=== PATIENT | female | born 1935 | race Hispanic/Latino ===

== ENCOUNTER 2017-08-22 08:21 | Inpatient (IN) | payer MEDICARE ==
--- NOTE | 2017-08-19 14:16 | Diagnostic Imaging Report ---
PROCEDURE: Frontal and lateral views of the chest. COMPARISON: None. INDICATIONS: PRE OPERATIVE CHEST X-RAY FOR KNEE SURGERY FINDINGS: Lines/tubes: None. Lungs: The lungs are well inflated and clear. There is no evidence of pneumonia or pulmonary edema. Pleura: There is no pleural effusion or pneumothorax. Eventration of the posterior hemidiaphragms. Heart and mediastinum: Mild enlargement of the cardiac silhouette. Pulmonary vasculature is normal. Atherosclerotic calcification of the abdominal aorta. Bones and soft tissues: No aggressive lytic lesion. Degenerative disc changes in the thoracic spine. IVC filter is noted in the abdomen on the lateral view. IMPRESSION: 1. mild enlargement of the cardiac silhouette, without acute cardiopulmonary disease. Smith Giraldo M.D. Dictated by: Smith Giraldo M.D. on 08/19/2017 at 14:17 Electronically approved by: Smith Giraldo M.D. on 08/19/2017 at 14:17
[2017-08-19 14:28] LABS: BASOPHILS # (AUTO) 0.1 (0.0-0.1); BASOPHILS % 1.1 % (0.0-1.0); EOSINOPHILS # (AUTO) 0.2 (0.0-0.4); EOSINOPHILS % 2.4 % (0.0-6.0); HEMATOCRIT 42.8 % (34.2-44.1); HEMOGLOBIN 14.1 g/dL (12.0-16.0); LYMPHOCYTES # (AUTO) 2.3 (1.0-3.2); LYMPHOCYTES % 25.8 % (18.0-39.1); MEAN CORPUSCULAR HEMOGLOBIN 31.5 pg (28-32); MEAN CORPUSCULAR HGB CONC 32.9 g/dL (31-35); MEAN CORPUSCULAR VOLUME 95.7 fL (81-99); MONOCYTES # (AUTO) 0.6 (0.2-0.8); MONOCYTES % 6.6 % (4.4-11.3); NEUTROPHILS # (AUTO) 5.8 (2.1-6.9); NEUTROPHILS % 63.9 % (38.7-80.0); PLATELET COUNT 344 x10e3/uL (140-360); RED BLOOD COUNT 4.47 x10e6/uL (3.6-5.1); RED CELL DISTRIBUTION WIDTH 12.5 % (11.7-14.4)
[~2017-08-22] VITALS: Ht 160 cm; Wt 72.6 kg
[~2017-08-22 08:21] MED LIST: ALPRAZOLAM1 MG PO; ASPIR 8181 MG PO; ATORVASTATIN CA10 MG PO; BACITRACIN 50,000 UNIT VIAL ONE; CEFAZOLIN SOD 2 GM/D5W 50ML 50 ML IV ONE; CELECOXIB 200 MG CAP ONE; DEXAMETHASONE SOD PHOS 10 MG/1 ML VIAL ONE; EXFORGE 10-3201 EACH PO; GABAPENTIN 300 MG CAP ONE; LEXAPRO10 MG PO; METOPROLOL TART25 MG PO; MUPIROCIN 2% OINT 22 GM TUBE ONE; PLAVIX75 MG PO; ROPIVACAINE 246.25 MG, EPINEPHRINE HCL 1:1000 0.5 MG, CLONIDINE HCL 0.08 MG, KETOROLAC ... INJ ONE; TRANEXAMIC ACID 1,000 MG/10 ML ML ONE; VIT D2 PO
--- OUTSIDE RECORDS SUMMARY | 2017-08-22 08:24 | XMS REPORT ---
Author Author [facility] Address Unknown Phone Unavailable Care Team Providers Care Adapted Physical Education Specialist Name Role Phone REBECA MARIE Unavailable Unavailable Problems This patient has no known problems. Allergies, Adverse Reactions, Alerts This patient has no known allergies or adverse reactions. Medications This patient has no known medications. Results Test Description Test Time Test Comments Text Results Atomic Results Result Comments CHEST 2 VIEWS [facility] [address] [address] Patient Name: JACQUE KESSLER MR #: [id number] : 1935 Age/Sex: 82/F Req # : [id number] Adm Physician: Ordered by: KATHY BALLESTEROS MD Report #: [id number] Location: OR Room/Bed: Procedure: [id number] DX/CHEST 2 VIEWS Exam Date: 08/19/17 Exam Time: 1330 REPORT STATUS: Signed PROCEDURE: Frontal and lateral views of the chest. COMPARISON: None. INDICATIONS: PRE OPERATIVE CHEST X- RAY FOR KNEE SURGERY FINDINGS: Lines/tubes: None. Lungs: The lungs are well inflated and clear. There is no evidence of pneumonia or pulmonary edema. Pleura: There is no pleural effusion or pneumothorax. Eventration of the posterior hemidiaphragms. Heart and mediastinum: Mild enlargement of the cardiac silhouette. Pulmonary vasculature is normal. Atherosclerotic calcification of the abdominal aorta. Bones and soft tissues: No aggressive lytic lesion. Degenerative disc changes in the thoracic spine. IVC filter is noted in the abdomen on the lateral view. IMPRESSION: 1. mild enlargement of the cardiac silhouette, without acute cardiopulmonary disease. Bridgette Giraldo M.D. Dictated by: Bridgette Giraldo M.D. on 08/19/2017 at 14:17 Electronically approved by: Bridgette Giraldo M.D. on 08/19/2017 at 14:17 Dictated By: BRIDGETTE GIRALDO MD [id number] Transcribed By: MALENA on 08/19/17 1417 COPY TO: KATHY BALLESTEROS III
[2017-08-22] MEDS ORDERED: DOCUSATE SODIUM 100 MG CAP PO PRN (10:15)
[2017-08-22] MEDS ORDERED: DIPHENHYDRAMINE HCL INJ 50 MG/ML VIAL IM/IV PRN (10:15)
[2017-08-22] MEDS ORDERED: ACETAMINOPHEN 650 MG SUPP PR PRN (10:15)
[2017-08-22] MEDS ORDERED: ONDANSETRON HCL INJ 2 MG/ML VIAL IV PRN (10:15)
[2017-08-22] MEDS ORDERED: PROMETHAZINE HCL (IM) 25 MG/ML VIAL IM PRN (10:15)
--- NOTE | 2017-08-22 11:00 | Diagnostic Imaging Report ---
PROCEDURE:X-RAY LEFT KNEE, ONE OR TWO VIEWS COMPARISON:None. INDICATIONS:POST OP KNEE FINDINGS:Status post total left knee arthroplasty with intact prosthesis in adequate anatomic alignment. There is post-operative suprapatellar effusion, soft tissue swelling and gas. Multiple surgical skin jenn. No acute fracture-dislocation. No definite intra-osseous lesion. CONCLUSION:Status post total left knee arthroplasty with intact prosthesis in adequate anatomic alignment. Dictated by: Christopher Dockery M.D. on 08/22/2017 at 11:01 Electronically approved by: Christopher Dockery M.D. on 08/22/2017 at 11:01
[2017-08-22] MEDS: SODIUM CHLORIDE 0.9% 1000ML 1,000 ML IV SCH ×2 (11:53→20:36)
[2017-08-22] MEDS: KETOROLAC TROMETHAMINE 30 MG/ML VIAL IV PRN (11:53)
[2017-08-22] MEDS: ACETAMINOPHEN 1000 MG/100 ML IV SCH ×2 (11:53→18:16)
[2017-08-22 12:00] VITALS: BP 134/62
[2017-08-22] MEDS ORDERED: CEFAZOLIN SOD 1 GM/NS 50ML 50 ML IV SCH (14:00)
[2017-08-22 14:01] VITALS: BP 136/62
[2017-08-22] MEDS: HYDROCODONE/APAP 7.5MG-325MG 1 EA TAB PO PRN (14:01)
--- NOTE | 2017-08-22 14:45 | Operative Report ---
DATE OF PROCEDURE: August 22, 2017 FISH DRIER: Suresh Arana PA-C The patient was brought to the operating room for induction of anesthesia. Throughout this case, my PA's assistance was necessary for retraction of soft tissue and positioning of the extremity. This allows for efficient and technically successful execution of the operation and is considered medically necessary. PREOPERATIVE DIAGNOSIS: Osteoarthritis, left knee. POSTOPERATIVE DIAGNOSIS: Osteoarthritis, left knee. PROCEDURE: Left total knee arthroplasty. INDICATIONS: The patient is an 82-year-old lady with end-stage arthritis of her left knee. She has failed extensive conservative management. She would like to proceed with a left total knee replacement. The risks and benefits and added challenges due to her age and physical conditioning have been explained. She states she understands and wishes to proceed. DESCRIPTION OF PROCEDURE: The patient was brought to the operating room and placed under general anesthetic. She received prophylactic antibiotics, tranexamic acid and a regional block in the holding area. Her left lower extremity was prepped and draped in a sterile manner. A preoperative time out was performed. The extremity was exsanguinated and a proximal tourniquet was inflated to 300 mmHg. A standard anterior approach with a medial parapatellar arthrotomy was performed. Clear synovial fluid was removed from the joint. Soft tissue releases were performed to bring the knee up into flexion with the patella everted. Meniscal remnants were excised. The cruciate ligaments were sacrificed. A Alex and Nephew Silvia II posterior stabilized knee system was used throughout the case. The proximal tibia was resected using an extramedullary cutting guide. The tibial baseplate was a size #4. The central fin punch was impacted and attention was directed towards the distal femur. An intramedullary cutting guide was used to resect the distal femur in 6 degrees of valgus and rotation referenced off of a combination of landmarks including [place]'s line, the epicondylar axis, and the posterior condyles. The femoral component was a size #5. The anterior and posterior cuts were made. Trial reductions were performed. A 9 mm ultra-congruent tibial insert provided optimal soft tissue balancing in flexion and extension. The patella was resurfaced with a 32 mm x 9 mm patellar button. The thickness was checked before and after resurfacing and was right around 23 mm. Patellar tracking was noted to be concentric. Trial implants were then removed. A 100 mL premixed pericapsular DARIA injection was placed into the soft tissue around the knee. The knee was thoroughly irrigated with a shower-tip pulsatile lavage. The components were cemented into place using a single mix of PALACOS cement preloaded with antibiotics. Bone quality was noted to be soft throughout the case. Care was taken not to impact the implants with any unusual force. The wound was further irrigated while the cement cured. The arthrotomy was then carefully closed with interrupted #1 Ethibond. The knee was put through flexion and extension to ensure a secure closure. The skin was closed with subcuticular Vicryl and jenn. A sterile bandage was applied. The patient was extubated and transported to the recovery room in stable condition. Blood loss was minimal and all needle and sponge counts were correct. Job#: [id number] DARRYL
[2017-08-22] MEDS: CELECOXIB 200 MG CAP PO SCH (16:26)
[2017-08-22] MEDS: ASPIRIN 325 MG TAB PO SCH (16:26)
[2017-08-22] MEDS: CEFAZOLIN SOD 1 GM VIAL IV SCH (16:26)
[2017-08-22] MEDS ORDERED: CELECOXIB 100 MG CAP PO SCH (17:00)
[2017-08-22] MEDS ORDERED: SEVOFLURANE INHAL SOLN 250 ML PEN BTL ONE (17:11)
[2017-08-22] MEDS ORDERED: LIDOCAINE HCL 2% LOCAL INJ 5 ML SDV VIAL INJ ONE (17:11)
[2017-08-22] MEDS ORDERED: PROPOFOL IV EMULSION 10 MG/ML 20 ML VIAL ONE (17:11)
[2017-08-22] MEDS ORDERED: ONDANSETRON HCL INJ 2 MG/ML VIAL ONE (17:11)
[2017-08-22] MEDS ORDERED: KETOROLAC TROMETHAMINE 30 MG/ML VIAL ONE (17:11)
[2017-08-22] MEDS ORDERED: DEXAMETHASONE SOD PHOS INJ 4 MG/ML VIAL ONE (17:11)
[2017-08-22] MEDS ORDERED: ROPIVACAINE 0.5% 5 MG/ML 30 ML SDV ONE (17:16)
[2017-08-22] MEDS ORDERED: LIDOCAINE 2%/ EPINEPHRINE 20ML MDV ONE (17:16)
[2017-08-22] MEDS ORDERED: MIDAZOLAM HCL 2 MG/2 ML VIAL ONE (17:23)
[2017-08-22] MEDS ORDERED: FENTANYL CITRATE/PF 100MCG/2 ML INJ ONE (17:23)
[2017-08-22 17:54] VITALS: BP 131/60
[2017-08-22 20:00] VITALS: BP 136/60
[2017-08-22] MEDS ORDERED: ZOLPIDEM TARTRATE 5 MG TAB PO PRN (21:00)
[2017-08-22] MEDS: HYDROCODONE/APAP 5MG-325MG TAB PO PRN (21:00)
[2017-08-23] VITALS: BP 142/64
[2017-08-23] MEDS: ACETAMINOPHEN 1000 MG/100 ML IV SCH ×2 (00:30→06:05)
[2017-08-23] MEDS: CEFAZOLIN SOD 1 GM VIAL IV SCH ×2 (00:30→08:30)
[2017-08-23 00:59] VITALS: BP 120/59
[2017-08-23] MEDS: HYDROCODONE/APAP 5MG-325MG TAB PO PRN (03:31)
[2017-08-23 04:00] VITALS: BP_SYST 120; BP_SYST 147; BP_DIAS 59; BP_DIAS 66
[2017-08-23] MEDS: KETOROLAC TROMETHAMINE 30 MG/ML VIAL IV PRN ×2 (05:29→11:30)
[2017-08-23] MEDS: SODIUM CHLORIDE 0.9% 1000ML 1,000 ML IV SCH (06:09)
[2017-08-23 07:03] LABS: HEMATOCRIT 39.3 % (34.2-44.1)
[2017-08-23 08:00] VITALS: BP 155/69
[2017-08-23 08:30] VITALS: BP 147/66
[2017-08-23] MEDS: HYDROCODONE/APAP 7.5MG-325MG 1 EA TAB PO PRN ×2 (08:30→14:00)
[2017-08-23] MEDS: CELECOXIB 200 MG CAP PO SCH (08:30)
[2017-08-23] MEDS: ASPIRIN 325 MG TAB PO SCH (08:30)
[2017-08-23] MEDS ORDERED: ACETAMINOPHEN 1000 MG/100 ML IV PRN (10:15)
[2017-08-23 13:57] VITALS: BP 155/70
[2017-08-23] MEDS ORDERED: NORCO 7.5-3251 EACH PO (14:42)
== END 2017-08-23 15:45 | disposition home health service (06) | DRG 470 ==
LOC: OR 08:21 → MED/SURG 11:08
PROVIDERS: ADMIT Specialist; ATTEND Specialist
PROC: 0SRD0J9 Replacement of Left Knee Joint with Synthetic Substitute, Cemented, Open Approach (ICD-10-PCS; principal; 2017-08-22 08:51)
DX: M17.12 Unilateral primary osteoarthritis, left knee (principal); K76.0 Fatty (change of) liver, not elsewhere classified; E11.9 Type 2 diabetes mellitus without complications; I10 Essential (primary) hypertension; E78.5 Hyperlipidemia, unspecified; D64.9 Anemia, unspecified; M71.22 Synovial cyst of popliteal space [Baker], left knee; I25.10 Atherosclerotic heart disease of native coronary artery without angina pectoris; F41.9 Anxiety disorder, unspecified
CPT/HCPCS: 36415; 71046; 85014; 85018; 85025; 86850; 86900; 86920; 93005; 97139; J0171; J0690; J1100; J1885; J2001; J2250; J2405; J2795; J7030

== ENCOUNTER → 2020-10-17 | Day surgery (SDC) | payer MEDICARE ==
[2020-10-15 15:39] LABS: BASOPHILS # (AUTO) 0.1 (0.0-0.1); BASOPHILS % 0.9 % (0.0-1.0); EOSINOPHILS # (AUTO) 0.3 (0.0-0.4); EOSINOPHILS % 2.2 % (0.0-6.0); HEMATOCRIT 41.8 % (34.2-44.1); HEMOGLOBIN 13.6 g/dL (12.0-16.0); LYMPHOCYTES # (AUTO) 2.4 (1.0-3.2); LYMPHOCYTES % 21.3 % (18.0-39.1); MEAN CORPUSCULAR HEMOGLOBIN 31.5 pg (28-32); MEAN CORPUSCULAR HGB CONC 32.5 g/dL (31-35); MEAN CORPUSCULAR VOLUME 96.8 fL (81-99); MONOCYTES # (AUTO) 0.8 (0.2-0.8); NEUTROPHILS # (AUTO) 7.8 (2.1-6.9); NEUTROPHILS % 68.2 % (38.7-80.0); PLATELET COUNT 334 x10e3/uL (140-360); RED BLOOD COUNT 4.32 x10e6/uL (3.6-5.1); RED CELL DISTRIBUTION WIDTH 13.4 % (11.7-14.4)
[2020-10-15 16:00] LABS: ANION GAP 11.8 mmol/L (8-16); BLOOD UREA NITROGEN 13 mg/dL (7-26); BUN/CREATININE RATIO 18 (6-25); CALCIUM 9.3 mg/dL (8.4-10.2); CARBON DIOXIDE 23 mmol/L (22-29); CHLORIDE 108 mmol/L (98-107); CREATININE, SERUM 0.73 mg/dL (0.57-1.11); EST GLOMERULAR FILTRATION RATE > 60 ML/MIN (60-); GLUCOSE 77 mg/dL (74-118); POTASSIUM 3.8 mmol/L (3.5-5.1); SODIUM 139 mmol/L (136-145)
[~2020-10-17] MED LIST changes: +AMLODIPINE BESY10 MG PO; +B&O 60MG R/S 60 MG SUPP PR ONE; -BACITRACIN 50,000 UNIT VIAL ONE; -CEFAZOLIN SOD 2 GM/D5W 50ML 50 ML IV ONE; +CEFTRIAXONE 1 GM VIAL ONE; -CELECOXIB 200 MG CAP ONE; -DEXAMETHASONE SOD PHOS 10 MG/1 ML VIAL ONE; +DEXAMETHASONE SOD PHOS INJ 4 MG/ML VIAL ONE; +EPHEDRINE SULFATE INJ 50 MG/ML VIAL ONE; -GABAPENTIN 300 MG CAP ONE; +GABAPENTIN100 MG PO; +GLYCOPYRROLATE INJ 0.2 MG/ML VIAL ONE; +IOPAMIDOL 300MG/ML 50ML INFUS..BTL IV ONE; +LIDOCAINE HCL 2% LOCAL INJ 5 ML SDV VIAL INJ ONE; +MECLIZINE HCL12.5 MG PO; -MUPIROCIN 2% OINT 22 GM TUBE ONE; +NORCO 7.5-3251 EACH PO; +OMEPRAZOLE40 MG PO; +ONDANSETRON HCL INJ 2MG/ML 2ML 2 MG/ML VIAL ONE; +POVIDONE IODINE 0.05% 0.05 % ML PO ONE; +PROPOFOL IV EMULSION 10 MG/ML 20 ML VIAL ONE; -ROPIVACAINE 246.25 MG, EPINEPHRINE HCL 1:1000 0.5 MG, CLONIDINE HCL 0.08 MG, KETOROLAC ... INJ ONE; +SEVOFLURANE INHAL SOLN 250 ML PEN BTL ONE; +SODIUM CHLORIDE 0.9% 50ML 50 ML ONE; +TOPAMAX100 MG PO; -TRANEXAMIC ACID 1,000 MG/10 ML ML ONE; +ZESTRIL2.5 MG PO
[2020-10-17 08:50] VITALS: BP 195/79
== END | disposition home or self-care (01) ==
LOC: OR 05:33
PROVIDERS: ATTEND Urology
DX: N20.0 Calculus of kidney (principal); N36.2 Urethral caruncle; N39.0 Urinary tract infection, site not specified; N81.6 Rectocele; N95.2 Postmenopausal atrophic vaginitis; N32.89 Other specified disorders of bladder; I25.810 Atherosclerosis of coronary artery bypass graft(s) without angina pectoris; I10 Essential (primary) hypertension; E78.5 Hyperlipidemia, unspecified; K21.9 Gastro-esophageal reflux disease without esophagitis; K58.9 Irritable bowel syndrome, unspecified; G43.909 Migraine, unspecified, not intractable, without status migrainosus; G62.9 Polyneuropathy, unspecified; F41.9 Anxiety disorder, unspecified; Z88.8 Allergy status to other drugs, medicaments and biological substances; Z01.810 Encounter for preprocedural cardiovascular examination; Z01.812 Encounter for preprocedural laboratory examination; Z01.818 Encounter for other preprocedural examination; Z20.822 Contact with and (suspected) exposure to COVID-19; Z79.02 Long term (current) use of antithrombotics/antiplatelets; Z79.82 Long term (current) use of aspirin; Z86.718 Personal history of other venous thrombosis and embolism; Z86.73 Personal history of transient ischemic attack (TIA), and cerebral infarction without residual deficits; Z95.1 Presence of aortocoronary bypass graft
CPT/HCPCS: 36415; 50590; 52332; 71046; 74018; 80048; 83970; 84550; 85025; 93005; C1758; C2617; J0696; J1100; J2001; J2405; J2704; Q9967; U0002

== ENCOUNTER → 2020-12-19 | Day surgery (SDC) | payer MEDICARE ==
[2020-12-18 15:05] LABS: BASOPHILS # (AUTO) 0.1 (0.0-0.1); BASOPHILS % 0.8 % (0.0-1.0); EOSINOPHILS # (AUTO) 0.2 (0.0-0.4); HEMATOCRIT 44.2 % (34.2-44.1); HEMOGLOBIN 14.1 g/dL (12.0-16.0); LYMPHOCYTES # (AUTO) 2.6 (1.0-3.2); MEAN CORPUSCULAR HEMOGLOBIN 31.7 pg (28-32); MEAN CORPUSCULAR HGB CONC 31.9 g/dL (31-35); MEAN CORPUSCULAR VOLUME 99.3 fL (81-99); MONOCYTES % 7.2 % (4.4-11.3); NEUTROPHILS # (AUTO) 10.4 (2.1-6.9); NEUTROPHILS % 72.5 % (38.7-80.0); PLATELET COUNT 329 x10e3/uL (140-360); RED BLOOD COUNT 4.45 x10e6/uL (3.6-5.1); RED CELL DISTRIBUTION WIDTH 12.7 % (11.7-14.4)
[2020-12-18 15:23] LABS: CALCIUM 9.3 mg/dL (8.4-10.2); CREATININE, SERUM 0.76 mg/dL (0.57-1.11)
[~2020-12-19] MED LIST changes: +AMPICILLIN SOD 1 GM/NS 50ML 50 ML IV ONE; -EPHEDRINE SULFATE INJ 50 MG/ML VIAL ONE; +FENTANYL CITRATE/PF 100MCG/2 ML INJ ONE; +GENTAMICIN 80MG/NS 100 ML 200 ML IV ONE; -POVIDONE IODINE 0.05% 0.05 % ML PO ONE
[2020-12-19 20:00] VITALS: BP 154/80
== END | disposition home or self-care (01) ==
LOC: OR 14:09
PROVIDERS: ATTEND Urology
DX: N20.0 Calculus of kidney (principal); Z87.442 Personal history of urinary calculi; N39.46 Mixed incontinence; R39.12 Poor urinary stream; N39.0 Urinary tract infection, site not specified; E66.9 Obesity, unspecified; N32.81 Overactive bladder; R35.1 Nocturia; N36.2 Urethral caruncle; N81.6 Rectocele; N95.2 Postmenopausal atrophic vaginitis; Z68.32 Body mass index [BMI] 32.0-32.9, adult; Z01.812 Encounter for preprocedural laboratory examination; Z01.818 Encounter for other preprocedural examination; Z20.822 Contact with and (suspected) exposure to COVID-19; Z46.6 Encounter for fitting and adjustment of urinary device; N81.4 Uterovaginal prolapse, unspecified; N36.41 Hypermobility of urethra
CPT/HCPCS: 36415; 52356; 74018; 74420; 80048; 84550; 85025; 88300; C1758; C1766; C2617; J0290; J0696; J1100; J1580; J2001; J2405; J2704; J3010; Q9967; U0002

== ENCOUNTER → 2021-02-20 | Day surgery (SDC) | payer MEDICARE ==
[2021-02-18 14:14] LABS: BASOPHILS # (AUTO) 0.1 (0.0-0.1); EOSINOPHILS # (AUTO) 0.2 (0.0-0.4); HEMATOCRIT 42.3 % (34.2-44.1); HEMOGLOBIN 13.5 g/dL (12.0-16.0); LYMPHOCYTES # (AUTO) 1.9 (1.0-3.2); LYMPHOCYTES % 22.7 % (18.0-39.1); MEAN CORPUSCULAR HEMOGLOBIN 31.3 pg (28-32); MEAN CORPUSCULAR HGB CONC 31.9 g/dL (31-35); MEAN CORPUSCULAR VOLUME 98.1 fL (81-99); MONOCYTES # (AUTO) 0.6 (0.2-0.8); MONOCYTES % 6.5 % (4.4-11.3); NEUTROPHILS # (AUTO) 5.7 (2.1-6.9); NEUTROPHILS % 67.3 % (38.7-80.0); PLATELET COUNT 338 x10e3/uL (140-360); RED BLOOD COUNT 4.31 x10e6/uL (3.6-5.1)
[2021-02-18 14:31] LABS: ANION GAP 8.9 mmol/L (8-16); CALCIUM 8.9 mg/dL (8.4-10.2); CREATININE, SERUM 0.76 mg/dL (0.57-1.11); POTASSIUM 3.9 mmol/L (3.5-5.1)
[~2021-02-20] MED LIST changes: -AMPICILLIN SOD 1 GM/NS 50ML 50 ML IV ONE; -B&O 60MG R/S 60 MG SUPP PR ONE; +BELLADONNA/OPIUM 30 MG SUPP RC ONE; -DEXAMETHASONE SOD PHOS INJ 4 MG/ML VIAL ONE; -FENTANYL CITRATE/PF 100MCG/2 ML INJ ONE; -GLYCOPYRROLATE INJ 0.2 MG/ML VIAL ONE; -LIDOCAINE HCL 2% LOCAL INJ 5 ML SDV VIAL INJ ONE; -ONDANSETRON HCL INJ 2MG/ML 2ML 2 MG/ML VIAL ONE; -PROPOFOL IV EMULSION 10 MG/ML 20 ML VIAL ONE; -SEVOFLURANE INHAL SOLN 250 ML PEN BTL ONE
[2021-02-20 12:35] VITALS: BP 160/63
== END | disposition home or self-care (01) ==
LOC: OR 08:49
PROVIDERS: ATTEND Urology
DX: N20.1 Calculus of ureter (principal); N20.0 Calculus of kidney; N28.89 Other specified disorders of kidney and ureter; Z46.6 Encounter for fitting and adjustment of urinary device; N81.10 Cystocele, unspecified; N81.6 Rectocele; N95.2 Postmenopausal atrophic vaginitis; N36.41 Hypermobility of urethra; N36.2 Urethral caruncle; I25.10 Atherosclerotic heart disease of native coronary artery without angina pectoris; I10 Essential (primary) hypertension; K21.9 Gastro-esophageal reflux disease without esophagitis; Z88.8 Allergy status to other drugs, medicaments and biological substances; Z01.810 Encounter for preprocedural cardiovascular examination; Z01.812 Encounter for preprocedural laboratory examination; Z01.818 Encounter for other preprocedural examination; Z20.822 Contact with and (suspected) exposure to COVID-19; Z79.02 Long term (current) use of antithrombotics/antiplatelets; Z95.1 Presence of aortocoronary bypass graft
CPT/HCPCS: 36415; 52352; 74018; 74420; 80048; 84550; 85025; 88300; 93005; C1769; J0696; J1580; Q9967; U0002

== ENCOUNTER → 2021-09-29 | Outpatient (CLI) | payer MEDICARE ==
[~2021-09-29] MED LIST changes: -BELLADONNA/OPIUM 30 MG SUPP RC ONE; -CEFTRIAXONE 1 GM VIAL ONE; -GENTAMICIN 80MG/NS 100 ML 200 ML IV ONE; -IOPAMIDOL 300MG/ML 50ML INFUS..BTL IV ONE; -SODIUM CHLORIDE 0.9% 50ML 50 ML ONE
== END ==
LOC: RAD 09:52
PROVIDERS: ATTEND Urology
DX: N20.0 Calculus of kidney (principal)
CPT/HCPCS: 74018